=== PATIENT | male | born 1970 | race Caucasian/White ===

== ENCOUNTER 2025-01-04 19:00 | Observation (INO) | payer MEDICARE, MEDICAID, SELFPAY ==
[2025-01-04] VITALS (27 sets, daily range): BP systolic 96–160; BP diastolic 56–109; PULSE 87–140; TEMP 36.8; O2SAT 93–99; BMI 32.7; BMI 32.0
--- NOTE | 2025-01-04 17:43 | ECG_ITS ---
The [facility] Test Date: 2025-01-04 Pat Name: Evan Ricketts Department: Room: - Gender: Male Telephone Order Clerk: : 1970 Requested By: [id number] Order Number: [id number] Reading MD: ALEX HERNANDEZ M.D. Measurements Intervals [place] Rate: 136 P: 224 RI: 170 QRS: 74 QRSD: 90 T: 64 QT: 318 QTc: 398 Interpretive Statements SINUS TACHYCARDIA [address] depression [address] & Twave abnormality 6230 Left atrial enlargement 0102 ARTIFACT PRESENT 9150 abnormal ECG No previous ECG available for comparison Electronically Signed On 01-04-2025 19:37:14 EST by ALEX HERNANDEZ M.D.
[2025-01-04] MEDS: EPINEPHRINE HCL PF 1 MG/ML AMPULE 0.3 MG SUBQ (17:58)
[2025-01-04] MEDS: IPRATROPIUM/ALBUTEROL SULFATE 3 ML AMPUL.NEB 6 ML IH (18:15)
[2025-01-04] MEDS: METHYLPREDNISOLONE SOD SUCC PF 40 MG/ML VIAL IVP (18:15)
[2025-01-04] MEDS: FAMOTIDINE/PF 20 MG/2 ML VIAL IV (18:15)
[2025-01-04] MEDS: DIPHENHYDRAMINE HCL 50 MG/ML VIAL 25 MG IVP ×2 (18:15→23:43)
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
[2025-01-04] MEDS: 0.9 % SODIUM CHLORIDE 1,000 ML 1000 ML IV (18:25)
[2025-01-04 18:33] LABS: Hematocrit 43.7 % (42.0-54.0); Hemoglobin 13.3 g/dL (14.0-18.0); Immature Granulocytes Abs Auto 0.07 10^3/uL (0.00-0.03); Immature Granulocytes Pct Auto 0.4 % (0.0-0.5); Lymphocytes Absolute Auto 2.4 10^3/uL (1.2-3.8); Mean Corpuscular HGB Conc 30.4 g/dL (29.9-35.2); Mean Corpuscular Hemoglobin 25.0 pg (25.9-34.0); Mean Corpuscular Volume 82.1 fL (80.0-94.0); Platelet Count 424 10^3/uL (150-450); Red Blood Count 5.32 10^6/uL (4.70-6.10); White Blood Count 19.2 10^3/uL (4.0-11.0)
--- NOTE | 2025-01-04 18:33 | XR_ITS ---
The [address] [address] Patient Name: MUNIR FULLER MRN: [id number] date: 1970 Sex: M Assigned Patient Location: ED.MAIN Current Patient Location: ED.MAIN Accession/Order Number: [id number] Exam Date: 01/04/2025 18:25 Report Date: 01/04/2025 18:50 At the request of: BRYAN HENRY DO Procedure: XR chest 1V PA CHEST: CLINICAL HISTORY: SOB COMPARISON: None Right-sided Heybdp-x-Icik. Upper limits of normal cardiomediastinal silhouette. No focal opacity effusion or pneumothorax. IMPRESSION: Negative acute pleural-parenchymal disease Impression dictated by: Trenton Sawyer M.D. 01/04/2025 6:50 PM Dictation Location: [place] [address] Electronically authenticated by: [id number] Y Date: 01/04/2025 18:50
[2025-01-04 18:57] LABS: Anion Gap 16.4; Blood Urea Nitrogen 22.0 mg/dL (7.0-18.0); Calcium 8.9 mg/dL (8.5-10.1); Carbon Dioxide 28.4 mmol/L (21.0-32.0); Chloride 99 mmol/L (98-107); Estimated GFR (African America >60 (>=60 mL/min/1.73m^2); Estimated GFR (Non-African Ame >60 (>=60 mL/min/1.73m^2); Glucose 168 mg/dL (74-106); NT Pro B Type Natriuretic Pept 75.0 pg/mL (<=900.0); Potassium 3.8 mmol/L (3.5-5.1); Sodium 140 mmol/L (136-145)
--- NOTE | 2025-01-04 20:12 | ECG_ITS ---
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 Measurements Intervals [place] Rate: 121 P: 56 MD: 162 QRS: 71 QRSD: 92 T: 66 QT: 328 QTc: 400 Interpretive Statements 1120 Sinus tachycardia 9140 abnormal rhythm ECG Compared to ECG 01/04/2025 18:03:28 ST (T wave) deviation no longer present Atrial abnormality no longer present Electronically Signed On 01-05-2025 5:36:56 EST by ALEX HERNANDEZ M.D.
--- OUTSIDE RECORDS SUMMARY | 2025-01-04 21:20 | XMS_ITS | Clinical Summary ---
Author Organization [facility] Address [address] [place] [address] Care Team Providers Care Soa Integration Architect Name Role Phone Colleen Moncada MD Primary Care Provider [phone] Allergies Active AllergyReactionsCriticalityNoted AlwnKgdqgbkmJlrojecdrXcaqn02/18/2024 Medications MedicationSigDispense QuantityRefillsLast FilledStart DateEnd DateStatus acetaminophen (Tylenol) 325 mg tablet Indications:pain,mild pain 1-3Take 650 mg by mouth every 4 (four) hours if needed.01/08/2019Active Lactobac. rhamnosus GG-inulin 10 billion cell -200 mg capsule, sprinkle Take 1 capsule by mouth in the morning.Active albuterol 2.5 mg /3 mL (0.083 %) nebulizer solution every 6 (six) hours if needed.01/08/2019Active bisacodyl (Dulcolax) 10 mg suppository Insert 10 mg into the rectum if needed each day.02/02/2010ctive cholecalciferol (Vitamin D-3) 50 MCG (2000 UT) tablet Take 2,000 Units by mouth in the morning.Active clobetasol (Temovate) 0.05 % external solution Apply 1 Application topically twice a day. Apply to scalp topically as needed for itching.Active cyclobenzaprine (Flexeril) 10 mg tablet Take 10 mg by mouth if needed in the morning, at noon, and at bedtime.Active apixaban (Eliquis) 5 mg tablet Indications:may restart 02/13/24.Take 5 mg by mouth twice a day.Active dooxtjgngftwf-YF-qmougarrvawfc 2-10-325 mg tablet Indications:nasal congestionTake 1 tablet by mouth every 4 (four) hours if needed.Active furosemide (Lasix) 40 mg tablet Indications:ONCE PER DAY PER MED REC.Take 40 mg by mouth twice a day.01/08/2019 Active glycerin (Adult) suppository Indications:as needed for constipation.Insert 1 suppository into the rectum. Active hydrocortisone butyrate (Locoid) 0.1 % cream cream Apply 1 Application topically if needed in the morning and at bedtime.Active lactulose (Kristalose) 20 gram packet Indications:as needed for constipation.Take 20 g by mouth in the morning.Active lidocaine (Lidoderm) 5 % patch Indications:as needed for neck pain, remove twelve hours after application.Apply 1 patch topically in the morning.Active metFORMIN (Glucophage) 500 mg tablet Take 500 mg by mouth two times daily.Active magnesium hydroxide (Milk of Magnesia) 400 mg/5 mL suspension Take 30 mL by mouth.02/02/2010ctive montelukast (Singulair) 10 mg tablet Take 10 mg by mouth in the morning.Active multivitamin (Theragran-M) 9 mg iron-400 mcg tablet Take 1 tablet by mouth in the morning.Active rOPINIRole (Requip) 0.25 mg tablet Take 0.25 mg by mouth 3 times a day.01/08/2019Active sennosides (Senokot) 8.6 mg tablet Take 8.6 mg by mouth at bedtime.Active methenamine hippurate (Hiprex) 1 gram tablet Indications:prevention of bacterial urinary tract infection,twice per dayTake 1 g by mouth.Active sodium phosphate,mono-dibasic (ENEMA DISPOSABLE RECT) Insert 1 Application into the rectum if needed.Active calcium polycarbophil (Fibercon) 625 mg tablet 625 mg two times daily.Active mineral oil enema Insert 1 enema into the rectum 1 (one) time. PRN if no BM for 5 days after using glycerin rectal suppository.Active alum-mag hydroxide-simeth (Mylanta) 200-200-20 mg/5 mL oral suspension Take 5 mL by mouth every 4 (four) hours if needed for indigestion or heartburn. Active midodrine (Proamatine) 10 mg tablet Take 10 mg by mouth every 12 (twelve) hours. Give if SBP <90, hold if SBP >90. Active polyethylene glycol (Glycolax) oral powder Take 17 g by mouth in the morning.Active baclofen (Lioresal) 20 mg tablet Indications:Muscle spasmTake 0.5 tablets (10 mg) by mouth two times daily. 02/12/2024ctive gabapentin (Neurontin) 400 mg capsule Indications:Quadriplegia, unspecified (CMS/HCC)Take 1 capsule (400 mg) by mouth two times daily for 3 days. And then continue per facility provider. 6 capsule 02/12/2024ctive tiZANidine (Zanaflex) 4 mg tablet Indications:Muscle spasmTake 1 tablet (4 mg) by mouth every 8 (eight) hours if needed for muscle spasms.02/12/2024ctive oxyCODONE-acetaminophen (Percocet) 5-325 mg tablet Take 2 tablets by mouth.Active aspirin 81 mg EC tablet Take 81 mg by mouth in the morning.Active fexofenadine (Coretta) 180 mg tablet Take 180 mg by mouth in the morning.Active Active Problems ProblemNoted DateDiagnosed DateSpinal cord injury, C1-C7, subsequent encounter 02/11/20241362Zdmxbxiggm67/25/2024bnormal wwytyhn10nemia ontracture of muscle, multiple sites Difficulty in walking, not elsewhere azesdgfuhj27Encounter for other specified njpenwxhc71Major depressive disorder, single episode, wsbjyvnvtpa57Methicillin resis staph infct causing diseases classd gbdprm53Muscle spasmMuscle weakness (generalized)Neuromuscular dysfunction of bladder, nzydolkxpwv29OAB (overactive bladder)oor intravenous rodyzq66ressure injury of right heel, stage 3 ressure ulcer of other site, stage Noxltmkn61Quadriplegia, C1-C4 eubfwczrtb63 Quadriplegia, rlpusrtcrhd04estless leg yujsrbng05/01/2024 11/25/2023Spastic hemiplegia affecting left nondominant side Spastic hemiplegia, dominant sideStiffness of right hand, not elsewhere nxgtkixjdg84Gross vzvhvgilb54 Overview (11/25/2023): Added automatically from request for surgery [id number] Kidney stone Overview (11/25/2023): 09/22/20: 14 mm stone in the right renal pelvis without hydronephrosis noted on CT 09/14/2020. He would like to pursue treatment and after discussion would like to proceed with cystoscopy/right ureteroscopy/holmium laser/stent. 10/31/20: Right ureteroscopy with laser lithotripsy, stent on string 11/29/20: Return of gross hematuria and bladder pain. Will check a urine culture and renal ultrasound. If negative and symptoms resolve, we will see him back in 6 months with a KUB. 12/06/20: KUB 11/29 negative. Renal US 12/01/2020 negative for stones or hydronephrosis. Urine culture was positive. 01/22/23: Recent gross hematuria but no pain. Will check CT 02/04/2023: CT with bilateral staghorn calculus. Recommendation was for bilateral percutaneous nephrolithotomy. Procedure as outlined in the consent reviewed. 03/06/2023: Bilateral PCNL 03/19/23. Doing well. Stone was 40% Calcium phosphate (apatite). 40% Ammonium urate. 20% Magnesium ammonium phosphate (struvite) 03/20/23: Reviewed with Dr. Cruz. He appears to have residual stone in the kidneys and bladder. Will need to schedule cystolitholapaxy/ureteroscopy Last Assessment & Plan: Will discuss further management with Dr. Cruz Neurogenic mlgzepl62Neurogenic bowel Unspecified site of spinal cord injury without evidence of spinal bone injury Urinary tract infection, site not pibndwwlw99/10/2010 11/25/2023 Encounters DateTypeDepartmentCare SewaIfguomshdrm36/13/2025 1:30 PM EDTOffice Visit [facility] [address] [place] [address] Daphne Friend CNP Quadriplegia, C1-C4 incomplete (CMS/HCC) [G82.52] (Primary Dx); Csvzlbypkt75/11/2025Orders Only [facility] [address] [place] [address] Agata Champagne MA Spasticity (Primary Dx)from Last 3 Months Family History Medical HistoryRelationNameCommentsLiver cancerFatherLung diseaseMaternal GrandmotherLung cancerMotherRelationNameStatusCommentsFatherMaternal Grandmother Mother Social History Tobacco UseTypesPacks/DayYears UsedDateSmoking Tobacco: FormerCigarettes0.510 Smokeless Tobacco: Never Tobacco Cessation:Counseling Given: Not Answered Alcohol UseStandard Drinks/WeekCommentsYes0 (1 standard drink = 0.6 oz pure alcohol)[facility] UtilitiesAnswerDate RecordedIn the past 12 months has the [employer], gas, oil, or water Stand Offer threatened to shut off services in your home?No02/11/2024Humiliation, Afraid, Rape, and Kick questionnaireAnswerDate RecordedWithin the last year, have you been afraid of your partner or ex-partner?No03/23/2024Emotionally AbusedNot on file03/23/2024Physically Abused Not on file03/23/2024Sexually AbusedNot on file03/23/2024Overall Financial Resource Strain (CARDIA)AnswerDate RecordedHow hard is it for you to pay for the very basics like food, housing, medical care, and heating?Very hard02/11/2024 PHQ-2AnswerDate RecordedPatient Health Questionnaire-2 Rostq415 TransportationAnswerDate RecordedIn the past 12 months, has lack of transportation kept you from medical appointments or from getting medications?No 02/11/2024Lack of Transportation (Non-Medical)Not on file02/11/2024Housing Stability Vital SignAnswerDate RecordedIn the last 12 months, was there a time when you were not able to pay the mortgage or rent on time?No02/11/2024Number of Times Moved in the Last YearNot on file02/11/2024t any time in the past 12 months, were you homeless or living in a senior living (including now)?No02/11/2024 Hunger Vital SignAnswerDate RecordedWithin the past 12 months, you worried that your food would run out before you got the money to buymore.Never true02/11/2024 Ran Out of Food in the Last YearNot on file02/11/2024Sex and Gender Information ValueDate RecordedSex Assigned at FcqcjBjzl85/13/2025 1:27 PM EDTLegal SexMale 10/09/2023 1:13 PM EDTGender NhcbhnehLluc45/13/2025 1:27 PM EDTSexual OrientationHeterosexual or Vmxmcoeh84/13/2025 1:27 PM EDT Last Filed Vital Signs Vital SignReadingTime TakenCommentsBlood Hiwqowos44/6412/06/2024 1:50 PM EDT Olnpl637912/06/2024 1:50 PM ZNKDppdkbakgyb00.8 ??C (98.3 ??F)07/07/2024 1:02 PM EDTRespiratory Vyrn315803/23/2024 8:49 AM ESTOxygen Jssprznaxi742%05/04/2024 1:17 PM EDTInhaled Oxygen Concentration--Pcmlug420 kg (254 lb)05/04/2024 1:17 PM EDT Wjqgow841.5 cm (6' 3 )05/04/2024 1:17 PM EDTBody Mass Index31.75005/04/2024 1:17 PM EDT Plan of Treatment DateTypeDepartmentCare Team (Latest Contact Info)Rdinlvvagxr37/04/2026 1:00 PM ESTOffice Visit [facility] [address] [place] [address] Daphne Friend, NET COORDINATOR [address] [place] [address] Health MaintenanceDue DateLast DoneCommentsCT Egxntobdcysx19/23/1970FIT-DNA 1970FIT1970FOBT1970Medicare Annual Wellness (AWV)1970 Tkaqjfutullkk35/23/1970Hepatitis B Vaccines (1 of 3 - 19+ 3-dose series) 1988Pneumococcal Vaccine: Pediatrics (0 to 5 Years) and At-Risk Patients (6 to 64 Years) (1 of 2 - PCV)1988Adult Wyitmak1306/17/1991Zoster Vaccines (1 of 2)06/17/2019COVID-19 Vaccine ( season), 05/01/2020, 04/05/2020, Additional history existsInfluenza Vaccine (#1) 10/25/2024Depression Jzdpavqrj67/28/086370/6443Bazibfgifjq19/09/2030 05/03/2019Colorectal Cancer Amhxojext29/09/2030HIB VaccinesAged OutNo longer eligible based on patient's age to complete this topicHPV VaccinesAged OutNo longer eligible based on patient's age to complete this topicIPV VaccinesAged OutNo longer eligible based on patient's age to complete this topicMeningococcal B VaccineAged OutNo longer eligible based on patient's age to complete this topicMeningococcal VaccineAged OutNo longer eligible based on patient's age to complete this topicRotavirus VaccinesAged OutNo longer eligible based on patient's age to complete this topic Medical Devices ImplantedTypeAreaManufacturerDevice IdentifierShelf Expiration DateModel / Serial / LotCatheter,Synchromed Ii - [id number] Implanted:Qty: 1 on 02/11/2024 [facility]terN/A: BackMEDTRONIC [id number] / / [id number] Catheter Implanted:Qty: 1 on 02/11/2024 by Mauro Mai [facility]CatheterN/A: DdemDzmcvynae26/[id number] / / [id number] Kit Implanted:Qty: 1 on 02/11/2024 by [facility]uro Mai MD [facility] HospitalDeviceN/A: CrbrHqusrquvh41/[id number] / / [id number] 3 Pump Implanted:Qty: 1 on 02/11/2024 by [facility]uro Mai [facility] HospitalDeviceRight: IzouuqnMgbucvdtr59/[id number] / [id number] / Ivc Filter Implanted:Qty: 1IVC FilterChest Additional Health Concerns InfectionOnset DateLast IndicatedCRE Comment:Added from external infection. Source: [place]. 09/29/2018 Insurance Advance Directives * Full Code (Latest Code Status on File) Date ActivatedDate NgnaocmmcziSrfrnoex35/18/2024 2:56 PM02/12/2024 7:44 PM Care Teams Team MemberRelationshipSpecialtyStart DateEnd Date Colleen Moncada MD [address] [place] [phone] PCP - GeneralInternal Vsmauzcf59/18/24
--- OUTSIDE RECORDS SUMMARY | 2025-01-04 21:20 | XMS_ITS | Clinical Summary ---
Author Organization [facility] Healthcare Address [address] [place] [address] Care Team Providers Care Underwater Hunter Trapper Name Role Phone FlashTomasa DO Unavailable [phone] Francy Eisenberg NP Unavailable [phone] Colleen Moncada MD Unavailable Allergies Active AllergyReactionsCriticalityNoted DateCommentsWound Dressing Adhesive 11/17/2023 Medications MedicationSigDispense QuantityRefillsLast FilledStart DateEnd DateStatus rOPINIRole (Requip) 0.25 MG tablet Take 0.25 mg by mouth in the morning and 0.25 mg in the evening and 0.25 mg before bedtime.Active promethazine (Phenergan) 25 MG tablet Take 25 mg by mouthActive potassium chloride (Klor-Con) 20 MEQ packet Take 20 mEq by mouth in the morning and 20 mEq before bedtime.Active montelukast (Singulair) 10 MG tablet Take 10 mg by mouth DailyActive metFORMIN (Glucophage) 500 MG tablet Take 500 mg by mouth in the morning. Take with meals.Active Metaxalone (METAXALL PO) Take by mouthActive lactulose (Kristalose) 20 g packet Take 20 g by mouth DailyActive Menthol-Zinc Oxide (CALMOSEPTINE EX) Apply topicallyActive potassium chloride CR (Klor-Con) 8 MEQ ER tablet Take 8 mEq by mouth Daily Do not crush, chew, or split.Active zolpidem (Ambien) 5 MG tablet Take 5 mg by mouth as needed at bedtime for sleepActive sennosides (Senokot) 8.6 MG tablet Take 2 tablets by mouth DailyActive rivaroxaban (Xarelto) 20 MG tablet Take 20 mg by mouth Take with food.Active midodrine (Proamatine) 5 MG tablet Take 5 mg by mouth in the morning and 5 mg in the evening and 5 mg before bedtime.Active furosemide (Lasix) 40 MG tablet Take 40 mg by mouth in the morning and 40 mg before bedtime.Active diphenhydrAMINE (Banophen) 25 MG capsule Take 25 mg by mouth every 6 (six) hours if needed for itchingActive tiZANidine (Zanaflex) 4 MG capsule Take 4 mg by mouth in the morning and 4 mg in the evening and 4 mg before bedtime.Active lidocaine (Lidoderm) 5 % patch Apply 1 patch topically Daily Remove & discard patch within 12 hours or as directed by MD.Active gabapentin (Neurontin) 400 MG capsule Take 400 mg by mouth in the morning and 400 mg before bedtime.Active acetaminophen (Tylenol) 325 MG suppository Insert 325 mg into the rectum every 4 (four) hours if needed for mild pain or fever Notes: *please review for potential _update for e-prescription and drug interaction check*Active albuterol (2.5 MG/3ML) 0.083% nebulizer solution Take by nebulization every 6 (six) hours if needed for wheezingActive ergocalciferol (Vitamin D-2) 1.25 MG (98312 UT) capsule Take 1.25 mg by mouth 1 (one) time per weekActive apixaban (Eliquis) 5 MG tablet Take 5 mg by mouth in the morning and 5 mg in the evening.Active baclofen (Lioresal) 20 MG tablet Take 20 mg by mouth in the morning and 20 mg at noon and 20 mg in the evening and 20 mg before bedtime.Active bisacodyl (Dulcolax) 10 MG suppository Insert 10 mg into the rectum Daily as neededActive cholecalciferol (Vitamin D-3) 50 MCG (2000 UT) tablet Take 2,000 Units by mouth in the morning.Active clobetasol (Temovate) 0.05 % external solution Apply 1 Application topically in the morning and 1 Application in the evening. Active Ferrous Sulfate (IRON PO) Take 1 tablet by mouth in the morning.Active hydrocortisone butyrate (Locoid) 0.1 % cream cream Apply 1 Application topically 2 (two) times a day as neededActive Multiple Vitamins-Minerals (Multivitamin Adults) tablet Active ascorbic acid (Vitamin C) 250 MG chewable tablet 1 (one) time each day at the same timeActive Ciclopirox 1 % shampoo Apply 1 Application topically at bedtimeActive cyclobenzaprine (Flexeril) 10 MG tablet Take 10 mg by mouth 3 (three) times a day as neededActive magnesium hydroxide (Milk of Magnesia) 2400 MG/10ML suspension suspension Take 15 mL by mouth as needed at bedtimeActive methenamine hippurate (Hiprex) 1 g tablet Take 1 g by mouthActive pantoprazole (ProtoNix) 40 MG EC tablet 5Active sodium chloride 0.9 % flush flushingActive triamcinolone (Kenalog) 0.1 % cream Apply to chest and back Topically BID Friday through Friday for 30 day(s)Active Multiple Minerals-Vitamins (Multi Stephen Minerals) tablet as directed OrallyActive Polyethylene Glycol 3350 (MIRALAX PO) Take by mouthActive dextromethorphan-guaiFENesin (Mucinex DM) 30-600 MG 12 hr tablet Take 1 tablet by mouth every 12 (twelve) hours Do not crush, chew, or split. Active guaiFENesin (Humibid 3) 400 MG tablet Take 400 mg by mouth every 4 (four) hoursActive aluminum-magnesium hydroxide-simethicone (Maalox MAX) 400-400-40 MG/5ML suspension Take by mouth every 6 (six) hours if needed for indigestion or heartburnActive aspirin 81 MG EC tablet Take 81 mg by mouth DailyActive fexofenadine (Coretta) 180 MG tablet Take 180 mg by mouth DailyActive Misc Natural Products (FIBER 7 PO) Take by mouthActive Lactobacillus (Acidophilus) 0.5 MG tablet Take by mouthActive triamcinolone (Kenalog) 0.025 % cream Indications:Other seborrheic dermatitisApply to affected areas on the EARS and FACE, up to twice a day when flared, 30 day supply 30 g 5Active triamcinolone (Kenalog) 0.1 % cream Indications:Other seborrheic dermatitisApply to affected areas on the BODY bid when flared. Avoid the face, armpits, and groin, 30 day supply 80 g 5Active clobetasol (Temovate) 0.05 % external solution Indications:Other seborrheic dermatitisApply to scalp once a day, when flared, do not use one the face, groin, or underarms, 30 day supply 50 mL 5Active oxyCODONE-acetaminophen (Percocet) 5-325 MG tablet Indications:PainTake 2 tablets by mouth every 12 (twelve) hours if needed for severe pain 120 tablet 5Active oxyCODONE-acetaminophen (Percocet) 5-325 MG tablet Take 2 tablets by mouth12/21/2024Discontinued(Reorder) ketoconazole (NIZOral) 2 % shampoo Indications:Other seborrheic dermatitisApply topically 2 (two) times a week Lather on scalp 2x a week, leave on 5 min before rinsing 120 mL Expired Active Problems ProblemNoted DateDiagnosed DateSpastic hemiplegia affecting left nondominant sideQuadriplegia, C1-C4 incompleteSpastic hemiplegia, dominant sideMuscle spasm Restless leg syndrome Encounters DateTypeDepartmentCare BqgiNghxqrxmzet11/28/2025Telephone [facility] [address] [place] [address] Juana Blackwood NP 12/14/2024bstract [facility] [address] [place] [address] Unallocated, Stacie Ventura MD 11/12/2024 9:10 AM EDTOffice Visit [facility] [address] [place] [address] Destini Walter PA Other seborrheic dermatitis (Primary Dx)11/12/2024bstract [facility] [address] [place] [address] Destini Walter PA 11/12/2024Travelfrom Last 3 Months Social History Tobacco UseTypesPacks/DayYears UsedDateSmoking Tobacco: Every DayCigarettes Smokeless Tobacco: Never Tobacco Cessation:Ready to Q uit: Not Asked; Counseling Given: Not Answered Alcohol UseStandard Drinks/WeekCommentsNever0 (1 standard drink = 0.6 oz pure alcohol)Sex and Gender InformationValueDate RecordedSex Assigned at BirthNot on fileLegal ObhRfkw4405/08/2022 6:54 PM EDTGender IdentityNot on fileSexual OrientationNot on file Last Filed Vital Signs Vital SignReadingTime TakenCommentsBlood Oihrwbxz237/68003/03/2024 1:27 PM EST Mntqe6938/08/2025 1:27 PM ESTTemperature--Respiratory Rate--Oxygen Txcloovcnf70% 03/03/2024 1:27 PM ESTInhaled Oxygen Concentration--Weight--Uiizvh241.5 cm (6' 3 )10/26/2020 12:00 PM EDTBody Mass Index-- Plan of Treatment DateTypeDepartmentCare Team (Latest Contact Info)Pibaxqogmov83/19/2025 8:40 AM ESTOffice Visit [facility] [address] [place] [address] Destini Walter, PA [address] [place], [place] [id number] Health MaintenanceDue DateLast DoneCommentsCT Vxgzzgnuubnx78/23/1970FIT-DNA 1969FIT1969Medicare Annual Wellness (AWV)1969igmoidoscopy 1970Pneumococcal Vaccine: Pediatrics (0 to 5 Years) and At-Risk Patients (6 to 64 Years) (1 of 2 - PCV)1988FOBT, 10/10/2017, 10/09/2017, Additional history existsCOVID-19 Vaccine ( season) , 04/05/2020, 03/15/2020Influenza Vaccine (#1)2024 12/26/20191861Tuoiwdhdecf15Colorectal Cancer Hifwtxqgi17/09/2030 Procedures Procedure NamePriorityDate/TimeAssociated DiagnosisCommentsOCCULT BLOODRoutine 10/10/2017 from Last 3 Months or Most Recently Relevant to Health Maintenance Results * OCCULT BLOOD (10/10/2017)ComponentValueRef RangeTest MethodAnalysis Time Performed AtPathologist SignatureFECAL OCCULT BLOODNegativeNOMS LEGACY EXTERNAL LABComment:PERFORMED AT [address] [place], [place] [address]Pncasqsz (Source)Anatomical Location / Laterality Collection Method / VolumeCollection TimeReceived Time10/10/2017 Narrative Authorizing ProviderResult TypeResult StatusColleen Moncada MDECW LABSFinal Result Performing OrganizationAddressCity/State/ZIP CodePhone Number [facility] from Last 3 Months or Most Recently Relevant to Health Maintenance Insurance Care Teams Team MemberRelationshipSpecialtyStart DateEnd Colleen Moncada MD [address] [place] [address] PCP - ACO Reach04/02/24 Tomasa Vidales DO [address] [place] [address] Referring PhysicianNeurology1 Francy Eisenberg NP Nurse PractitionerNeurology1
--- OUTSIDE RECORDS SUMMARY | 2025-01-04 21:20 | XMS_ITS | Encounter Summary ---
Author Organization [facility] Address [address] [place] [address] Care Team Providers Care Metal Sander And Finisher Name Role Phone Tomasa Vidales Unavailable [phone] Francy Eisenberg NP Unavailable [phone] Colleen Moncada MD Unavailable Encounter Details DateTypeDepartmentCare Team (Latest Contact Info)Dbtrabvahnj17/28/2025Telephone [facility] [address] [place] [address] Juana Chavez NP [address] [place], [place] [id number] Social History Tobacco UseTypesPacks/DayYears UsedDateSmoking Tobacco: Every DayCigarettes Smokeless Tobacco: NeverAlcohol UseStandard Drinks/WeekCommentsNever0 (1 standard drink = 0.6 oz pure alcohol)Sex and Gender InformationValueDate RecordedSex Assigned at BirthNot on fileLegal KlqEhzu1705/08/2022 6:54 PM EDT Gender IdentityNot on fileSexual OrientationNot on filedocumented as of this encounter Miscellaneous Notes * Telephone Encounter - Juana Chavez NP - 12/21/2024 1:59 PM EDT Requested Prescriptions Signed Prescriptions Disp Refills oxyCODONE-acetaminophen (Percocet) 5-325 MG tablet 120 tablet 0 Sig: Take 2 tablets by mouth every 12 (twelve) hours if needed for severe pain Authorizing Provider: JUANA CHAVEZ documented in this encounter Plan of Treatment DateTypeDepartmentCare Team (Latest Contact Info)Xpthksnfadu76/19/2025 8:40 AM ESTOffice Visit [facility] [address] [place] [address] Destini Walter, PA [address] [place] [address] documented as of this encounter Visit Diagnoses Diagnosis Pain- Primary Generalized pain documented in this encounter Care Teams Team MemberRelationshipSpecialtyStart DateEnd Date Colleen Moncada MD [address] [facility] [address] [place] [address] PCP - ACO Reach2 Tomasa Vidales DO [address] [place] [address] Referring PhysicianNeurology1/10/18 Francy Eisenberg NP Nurse PractitionerNeurology1/10/18documented as of this encounter
[2025-01-04] MEDS: 0.9 % SODIUM CHLORIDE 1,000 ML 999 ML IV (21:59)
--- NOTE | 2025-01-04 22:15 | ECG_ITS ---
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 Measurements Intervals [place] Rate: 83 P: 58 CT: 160 QRS: 61 QRSD: 96 T: 54 QT: 365 QTc: 429 Interpretive Statements SINUS RHYTHM Normal ECG Compared to ECG 01/04/2025 20:12:46 Sinus tachycardia no longer present Electronically Signed On 01-05-2025 5:38:23 EST by ALEX HERNANDEZ M.D.
[2025-01-04 22:21] LABS: Glucose Urine UA NEGATIVE (NEGATIVE)
[2025-01-04 22:39] LABS: Cast Seen? NONE SEEN #/LPF (NONE SEEN); Crystals Seen? None Seen #/HPF (None Seen); Urine Culture Indicated YES-FRMC
[2025-01-04] MEDS: LEVOFLOXACIN 750 MG TABLET PO (23:40)
[2025-01-04] MEDS: ASPIRIN 81 MG TABLET.DR PO (23:40)
[2025-01-04] MEDS: MIDODRINE HCL 5 MG TABLET PO (23:41)
[2025-01-04] MEDS: METOPROLOL TARTRATE 25 MG TABLET PO (23:41)
[2025-01-04] MEDS: ROPINIROLE HCL 0.25 MG TABLET 0.5 MG PO (23:42)
[2025-01-04] MEDS: BACLOFEN 10 MG TABLET 5 MG PO (23:42)
[2025-01-04] MEDS: CLOPIDOGREL BISULFATE 75 MG TABLET PO (23:42)
[2025-01-04] MEDS: CHOLECALCIFEROL (VITAMIN D3) 25 MCG/1,000 UNITS TABLET 50 MCG PO (23:43)
[2025-01-05] VITALS (9 sets, daily range): BP systolic 127–137; BP diastolic 79–82; PULSE 56–99; TEMP 36.8; O2SAT 90–92
[2025-01-05] MEDS: 0.9 % SODIUM CHLORIDE 1,000 ML 125 ML IV ×2 (01:27→08:55)
[2025-01-05 06:03] LABS: Hematocrit 34.4 % (42.0-54.0); Hemoglobin 10.7 g/dL (14.0-18.0); Immature Granulocytes Abs Auto 0.07 10^3/uL (0.00-0.03); Immature Granulocytes Pct Auto 0.5 % (0.0-0.5); Lymphocytes Absolute Auto 0.8 10^3/uL (1.2-3.8); Mean Corpuscular HGB Conc 31.1 g/dL (29.9-35.2); Mean Corpuscular Hemoglobin 25.2 pg (25.9-34.0); Mean Corpuscular Volume 81.1 fL (80.0-94.0); Platelet Count 315 10^3/uL (150-450); Red Blood Count 4.24 10^6/uL (4.70-6.10); White Blood Count 14.6 10^3/uL (4.0-11.0)
[2025-01-05 06:21] LABS: Alanine Aminotransferase 16 U/L (16-63); Albumin Globulin Ratio 0.7; Albumin Level 2.8 g/dL (3.4-5.0); Alkaline Phosphatase 37 U/L (46-116); Anion Gap 10.3; Aspartate Amino Transferase 12 U/L (15-37); Blood Urea Nitrogen 15.0 mg/dL (7.0-18.0); Calcium 8.7 mg/dL (8.5-10.1); Carbon Dioxide 29.4 mmol/L (21.0-32.0); Chloride 104 mmol/L (98-107); Cholesterol 138 mg/dL (<=200); Estimated GFR (African America >60 (>=60 mL/min/1.73m^2); Estimated GFR (Non-African Ame >60 (>=60 mL/min/1.73m^2); Globulin 4.3 g/dL; Glucose 123 mg/dL (74-106); HDL Cholesterol 42 mg/dL (40-60); Magnesium 2.2 mg/dL (1.8-2.4); Potassium 4.7 mmol/L (3.5-5.1); Sodium 139 mmol/L (136-145); Total Protein 7.1 g/dL (6.4-8.2); Triglycerides 29 mg/dL (<=150); VLDL CHOLESTEROL 5.8 mg/dL
[2025-01-05] MEDS: BACLOFEN 10 MG TABLET 5 MG PO (06:53)
[2025-01-05] MEDS: ENOXAPARIN SODIUM 40 MG/0.4 ML SYRINGE SUBQ (08:11)
[2025-01-05] MEDS: MAGNESIUM OXIDE 400 MG TABLET PO (08:12)
[2025-01-05] MEDS: MONTELUKAST SODIUM 10 MG TABLET PO (08:12)
[2025-01-05] MEDS: ASPIRIN 81 MG TABLET.DR PO (08:12)
[2025-01-05] MEDS: PANTOPRAZOLE SODIUM 40 MG TABLET.DR PO (08:12)
[2025-01-05] MEDS: FERROUS SULFATE 325 MG TABLET PO (08:12)
[2025-01-05] MEDS: METFORMIN HCL 500 MG TABLET PO (08:12)
[2025-01-05] MEDS: METOPROLOL TARTRATE 25 MG TABLET PO (08:12)
[2025-01-05] MEDS: CHOLECALCIFEROL (VITAMIN D3) 25 MCG/1,000 UNITS TABLET 50 MCG PO (08:12)
--- NOTE | 2025-01-05 09:41 | SWNOTE1 ---
SW reached out to Ted at [facility] to confirm pt is from the facility manager terminal, waiting to hear back.
--- NOTE | 2025-01-05 09:44 | SWNOTE1 ---
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
--- NOTE | 2025-01-05 10:15 | CM.NOTE ---
Rounds made with Dr. Cox, discussed plan of care with pt. Pt requesting discharge today. [facility]. Will await discharge orders.
--- NOTE | 2025-01-05 11:00 | SWNOTE1 ---
Pt will be discharged back to [facility]. SW stopped in to speak with pt. Pt voiced things were going fine at [facility] and he wants transport set up as soon as possible. SW to work on transport.
--- NOTE | 2025-01-05 11:01 | SWNOTE1 ---
Medicare Outpatient Observation Notice reviewed and discussed with patient. Pt. verbalized understanding and SW signed the form due to pt being quadriplegic. Pt had no questions in regards to paper and did not want SW to call anyone else in family to review. Original given to patient and copy placed in patient?s chart.
--- NOTE | 2025-01-05 11:05 | SWNOTE1 ---
AV called and set up [facility] transport for 12:00. AV notified pt's nurse and [facility] of time. AV called pt's , but she did not answer and her mailbox was full. Pt is returning to [facility].
--- NOTE | 2025-01-05 11:06 | SWNOTE1 ---
SW completed [facility] paperwork and took packet out to the floor. AV faxed over completed dc med rec.
--- NOTE | 2025-01-05 11:06 | PC.NURSE ---
Report called to Orly at [facility]. transport expected at noon
--- NOTE | 2025-01-05 15:59 | PM.IMHP1 ---
Internal Medicine - H&P: HPI History of Present Illness Chief complaint: Anaphylactic shock, elevated troponin, decubitus Narrative: Mr Ricketts Is a 54-year-old man who was admitted to the hospital the evening of January 04 after he was brought to the hospital with symptoms of anaphylaxis. 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 He had a diffuse skin rash in his thighs, stomach pain and short of breath for almost an hour. He was diagnosed with anaphylaxis and given IV Solu-Medrol, famotidine, IV Benadryl, and IM epinephrine to treat his anaphylaxis. On routine lab workup his troponins were checked and noted to be elevated at 187 and repeat levels returned at 457. He was declining any further cardiac workup or procedure, he did not want transferred for this. He was admitted for observation overnight. Upon evaluating the patient this morning, he is awake and alert, he is oriented to person place and time, he understands his condition yesterday was consistent with a severe allergic reaction and he was updated on his heart enzymes that were checked. He tells me he feels great, he was requesting to be discharged home back to [facility] upon me arriving to the hospital. He has no complaints whatsoever for me other than requesting a pillow to be placed under his left arm for more support. He says he is breathing better, he denies any chest pain. The rash on his legs has improved greatly. Review of Systems ROS Status of ROS 10 or more systems reviewed and unremarkable except as noted in history and below [facility] Medical History (Updated 01/05/25 @ 01:43 by Estephanie Sy) Elevated troponin ?R79.89 - Other specified abnormal findings of blood chemistry (ICD-10) Calculus in bladder ?N21.0 - Calculus in bladder (ICD-10) Nicotine dependence ?F17.200 - Nicotine dependence, unspecified, uncomplicated (ICD-10) Congestive heart failure (CHF) ?I50.9 - Heart failure, unspecified (ICD-10) Hypotension ?I95.9 - Hypotension, unspecified (ICD-10) COPD (chronic obstructive pulmonary disease) ?J44.9 - Chronic obstructive pulmonary disease, unspecified (ICD-10) Pyoderma ?L08.0 - Pyoderma (ICD-10) Contracture of muscle ?M62.40 - Contracture of muscle, unspecified site (ICD-10) Anemia ?D64.9 - Anemia, unspecified (ICD-10) Major depressive disorder ?F32.9 - Major depressive disorder, single episode, unspecified (ICD-10) Neuromuscular dysfunction of bladder ?N31.9 - Neuromuscular dysfunction of bladder, unspecified (ICD-10) C1-C4 spin cord injury ?S14.101A - Unspecified injury at C1 level of cervical spinal cord, initial encounter (ICD-10) Acute complete flaccid quadriplegia Social History Little interest or pleasure in doing things: not at all Feeling down, depressed, or hopeless: not at all Meds Home Medications and Allergies Home Medications ?Medication ?Instructions ?Recorded ?Confirmed ?Type acetaminophen 500 mg capsule 500 mg PO Q4H PRN fever or pain 01/04/25 01/04/25 History albuterol sulfate 2.5 mg/0.5 mL 2.5 mg inhalation Q6H PRN 01/04/25 01/04/25 History solution for nebulization shortness of breath or wheezing aluminum-mag hydroxide-simethicone 5 ml PO Q6H PRN indigestion 01/04/25 01/04/25 History 200 mg-200 mg-20 mg/5 mL oral susp (Antacid Liquid) aspirin 81 mg tablet 81 mg PO DAILY 01/04/25 01/04/25 History baclofen 10 mg tablet 10 mg PO Q8H 01/04/25 01/05/25 History bisacodyl 10 mg rectal suppository 10 mg UT DAILY PRN constipation 01/04/25 01/04/25 History (Dulcolax (bisacodyl)) calcium carbonate (Antacid 600 mg PO DAILY 01/04/25 01/05/25 History (calcium carbonate)) cholecalciferol (vitamin D3) 50 2,000 unit PO .QHS 01/04/25 01/05/25 History mcg (2,000 unit) capsule clobetasol 0.05 % topical cream 1 applic topical DAILY PRN ECZEMA 01/04/25 01/05/25 History dextromethorphan-guaifenesin 30 1 tab PO Q12H PRN cough 01/04/25 01/04/25 History mg-600 mg tablet extended apvrqdb63 hr (Mucinex DM) ferrous sulfate 325 mg (65 mg 325 mg PO DAILY 01/04/25 01/04/25 History iron) tablet fexofenadine 180 mg tablet 180 mg PO DAILY 01/04/25 01/04/25 History furosemide 40 mg tablet 40 mg PO DAILY 01/04/25 01/04/25 History gabapentin 400 mg capsule 400 mg PO Q12H 01/04/25 01/04/25 History magnesium 200 mg tablet 400 mg PO .QHS 01/04/25 01/05/25 History magnesium hydroxide 2,400 mg/10 mL 15 ml PO DAILY PRN constipation 01/04/25 01/04/25 History oral suspension metformin 500 mg tablet 500 mg PO BIDWM 01/04/25 01/05/25 History methenamine hippurate 1 gram tablet 1 g PO Q12H 01/04/25 01/04/25 History montelukast 10 mg tablet 10 mg PO .QHS 01/04/25 01/05/25 History nutritional supp - diet aids 1 tab PO TID 01/04/25 01/04/25 History oxycodone-acetaminophen 5 mg-325 2 tab PO Q12H PRN pain 01/04/25 01/04/25 History mg tablet pantoprazole 40 mg tablet,delayed 40 mg PO DAILY 01/04/25 01/04/25 History release polyethylene glycol 3350 17 17 g PO DAILY PRN constipation 01/04/25 01/04/25 History gram/dose oral powder (ClearLax) potassium chloride 20 mEq 20 meq PO DAILY 01/04/25 01/05/25 History tablet,extended release(part/cryst) ropinirole 0.5 mg tablet 0.5 mg PO .QHS 01/04/25 01/04/25 History sennosides 8.6 mg tablet 8.6 mg PO TID 01/04/25 01/05/25 History (Black-Draught Lax-Senna) therapeutic multivitamin (Oncovite 1 tab PO DAILY 01/04/25 01/04/25 History tablet) triamcinolone acetonide 0.025 % 1 applic topical .q12hr PRN eczema 01/04/25 01/04/25 History topical cream cyclobenzaprine 10 mg tablet 10 mg PO Q8H PRN spasms 01/05/25 01/05/25 History midodrine 10 mg tablet 10 mg PO BIDWM PRN hypotension 01/05/25 01/05/25 History tizanidine 2 mg tablet 2 mg PO BID 01/05/25 01/05/25 History Allergies Allergy/AdvReac Type Severity Reaction Status Date / Time ceftriaxone Allergy Unknown Unknown Verified 01/04/25 17:48 [facility] Allergy Unknown Unknown Verified 01/04/25 17:48 lidocaine Allergy Unknown Unknown Verified 01/04/25 17:48 Exam Narrative Exam Narrative: General: Awake alert, no acute distress, breathing well on room air HEENT: head atraumatic, normocephalic, moist mucous membranes Neck: supple no masses, no lymphadenopathy CVS: regular rate and rhythm, no murmurs or gallops Respiratory: clear to auscultation bilaterally, no wheezing or crackles, symmetric expansion GI: soft, nondistended, nontender, positive bowel sounds with no organomegaly Extremity: No tenderness or edema on palpation, contractures noted. There is a slight rash on his inner thighs, no evidence of any raised lesions, these rashes are nontender to palpation, they are not itchy. He says they have greatly improved like before. Neuro: AOx3, CN II-VII intact. Skin: dry, intact no rashes or lesions Constitutional Vital Signs, click to edit/add: Last Vital Signs Temp 98.2 F 01/05/25 07:02 Pulse 62 01/05/25 09:58 Resp 18 01/05/25 07:02 BP 137/79 01/05/25 07:02 Pulse Ox 92 L 01/05/25 10:56 O2 Del Method Room Air 01/05/25 10:56 O2 Flow Rate 2 01/05/25 07:02 Internal Medicine - H&P: Reslt Labs Labs: Short CBC 01/04/25 01/05/25 Range/Units 18:11 05:33 WBC 19.2 H 14.6 H (4.0-11.0) 10^3/uL Hgb 13.3 L 10.7 L (14.0-18.0) g/dL Hct 43.7 34.4 L (42.0-54.0) % Plt Count 424 315 (150-450) 10^3/uL BMP 01/04/25 01/05/25 18:11 05:33 Sodium 140 139 Potassium 3.8 4.7 Chloride 99 104 Carbon Dioxide 28.4 29.4 BUN 22.0 H 15.0 Creatinine 0.90 0.51 L Glucose 168 H 123 H Calcium 8.9 8.7 Liver Function 01/05/25 Range/Units 05:33 Total Bilirubin 0.2 (0.2-1.0) mg/dL AST 12 L (15-37) U/L ALT 16 (16-63) U/L Alkaline Phosphatase 37 L (46-116) U/L Albumin 2.8 L (3.4-5.0) g/dL Urine 01/04/25 Range/Units 18:00 Urine Color Lt. yellow (YELLOW) Urine Clarity Sl cloudy (CLEAR) Urine pH 5.0 (5.0-9.0) Ur Specific [place] 1.020 (1.005-1.025) Urine Protein Trace (NEG/TRACE) mg/dL Urine Glucose (UA) Negative (NEGATIVE) mg/dL Urinary Catheter Management Urinary Catheter Management Suprapubic: Cath placed during this visit: no Assessment and Plan Assessment and Plan (1) Anaphylaxis: Assessment and Plan: ? Was diagnosed with anaphylaxis based on his skin rash, elevated troponin, shortness of breath with wheeze, and stomach pain ? Received IV sign Medrol, famotidine, Benadryl, and IV epinephrine immediately last night ? His symptoms have completely resolved this morning other than a slight rash on his legs ? He is not sure what he was given or exposed to yesterday, he did not receive any antibiotics or lidocaine to his knowledge ? Breathing well on room air ? Pulse is stable ? 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 Patient is requesting discharge in the hospital, he is a DNR CC and he is declining other further workup, echocardiogram was ordered and he refused this. He understands the risks of possible AK though the troponins were likely due to his anaphylactic reaction. He is requesting discharge back to [facility]. I did have a brief discussion with him about this and not having any further workup, he understands the risks. He has no interest in being in the hospital. Given his status is a DNR CC, I do not see any objections to discharge at this point in time given he is refusing further workup and okay with the risks and he is alert and oriented by 4, he is saturating well, he is talking in complete sentences, and he tells me he is feeling a lot better than he was yesterday.
--- NOTE | 2025-01-05 16:06 | PM.DS1 ---
DS: Providers Provider Date of admission: 01/04/25 22:46 Primary care physician: REYMUNDO GUTIERREZ DS: Diagnosis Discharge Diagnosis (1) Anaphylaxis: (2) C1-C4 spin cord injury: DS: Summary Hospital Course Hospital Course: Mr Ricketts Is a 54-year-old man who was admitted to the hospital the evening of January 04 after he was brought to the hospital with symptoms of anaphylaxis. 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 He had a diffuse skin rash in his thighs, stomach pain and short of breath for almost an hour. He was diagnosed with anaphylaxis and given IV Solu-Medrol, famotidine, IV Benadryl, and IM epinephrine to treat his anaphylaxis. On routine lab workup his troponins were checked and noted to be elevated at 187 and repeat levels returned at 457. He was declining any further cardiac workup or procedure, he did not want transferred for this. He was admitted for observation overnight. Upon evaluating the patient this morning, he is awake and alert, he is oriented to person place and time, he understands his condition yesterday was consistent with a severe allergic reaction and he was updated on his heart enzymes that were checked. He tells me he feels great, he was requesting to be discharged home back to [place] upon me arriving to the hospital. He has no complaints whatsoever for me other than requesting a pillow to be placed under his left arm for more support. He says he is breathing better, he denies any chest pain. The rash on his legs has improved greatly. My first time evaluating the patient was the morning of 01/05/25, I was not present for this admission. ? Patient is requesting discharge in the hospital, he is a DNR CC and he is declining other further workup, echocardiogram was ordered and he refused this. He understands the risks of possible PR though the troponins were likely due to his anaphylactic reaction. He is requesting discharge back to [facility]. I did have a brief discussion with him about this and not having any further workup, he understands the risks. He has no interest in being in the hospital. Given his status is a DNR CC, I do not see any objections to discharge at this point in time given he is refusing further workup and okay with the risks and he is alert and oriented by 4, he is saturating well, he is talking in complete sentences, and he tells me he is feeling a lot better than he was yesterday. [facility]. Time Spent with Patient Time attestation: Total time spent providing and/or coordinating discharge services: Exam Constitutional Vital Signs, click to edit/add: Last Vital Signs Temp 98.2 F 01/05/25 07:02 Pulse 62 01/05/25 09:58 Resp 18 01/05/25 07:02 BP 137/79 01/05/25 07:02 Pulse Ox 92 L 01/05/25 10:56 O2 Del Method Room Air 01/05/25 10:56 O2 Flow Rate 2 01/05/25 07:02 DS: Data Data Completed and Pending Labs on day of discharge: Labs from last 24 hours 01/05/25 01/04/25 01/04/25 05:33 21:04 18:11 WBC 14.6 H 19.2 H RBC 4.24 L 5.32 Hgb 10.7 L 13.3 L Hct 34.4 L 43.7 MCV 81.1 82.1 MCH 25.2 L 25.0 L MCHC 31.1 30.4 RDW 16.3 H 16.8 H Plt Count 315 424 MPV 10.3 10.5 Neut % (Auto) 90.3 H 83.3 H Lymph % (Auto) 5.5 L 12.7 L Turner % (Auto) 3.4 2.9 Eos % (Auto) 0.0 L 0.6 L Baso % (Auto) 0.3 0.1 L Neut # (Auto) 13.2 H 16.0 H Lymph # (Auto) 0.8 L 2.4 Turner # (Auto) 0.5 0.6 Eos # (Auto) 0.0 0.1 Baso # (Auto) 0.0 0.0 Abs Immat Gran (auto) 0.07 H 0.07 H Imm/Tot Granulo (auto) 0.5 0.4 Sodium 139 140 Potassium 4.7 3.8 Chloride 104 99 Carbon Dioxide 29.4 28.4 Anion Gap 10.3 16.4 BUN 15.0 22.0 H Creatinine 0.51 L 0.90 Est GFR ( Amer) >60 >60 Est GFR (Non-Af Amer) >60 >60 BUN/Creatinine Ratio 29.4 24.4 Glucose 123 H 168 H Calcium 8.7 8.9 Magnesium 2.2 Total Bilirubin 0.2 AST 12 L ALT 16 Alkaline Phosphatase 37 L Troponin I High Sens 230.6 H* 455.7 H* 189.7 H* NT-Pro-B Natriuret Pep 75.0 Total Protein 7.1 Albumin 2.8 L Globulin 4.3 Albumin/Globulin Ratio 0.7 Triglycerides 29 Cholesterol 138 LDL Cholesterol, Calc 90.2 VLDL Cholesterol 5.8 HDL Cholesterol 42 Cholesterol/HDL Ratio 3.3 Urine Color Urine Clarity Urine pH Ur Specific [place] Urine Protein Urine Glucose (UA) Urine Ketones Urine Occult Blood Urine Nitrite Urine Bilirubin Urine Urobilinogen Ur Leukocyte Esterase Urine RBC Urine WBC Ur Squamous Epith Cells Ur Transition Epith Cell Urine Crystals Urine Bacteria Urine Casts Urine Mucus Ur Culture Indicated? 01/04/25 18:00 WBC RBC Hgb Hct MCV MCH MCHC RDW Plt Count MPV Neut % (Auto) Lymph % (Auto) Turner % (Auto) Eos % (Auto) Baso % (Auto) Neut # (Auto) Lymph # (Auto) Turner # (Auto) Eos # (Auto) Baso # (Auto) Abs Immat Gran (auto) Imm/Tot Granulo (auto) Sodium Potassium Chloride Carbon Dioxide Anion Gap BUN Creatinine Est GFR ( Amer) Est GFR (Non-Af Amer) BUN/Creatinine Ratio Glucose Calcium Magnesium Total Bilirubin AST ALT Alkaline Phosphatase Troponin I High Sens NT-Pro-B Natriuret Pep Total Protein Albumin Globulin Albumin/Globulin Ratio Triglycerides Cholesterol LDL Cholesterol, Calc VLDL Cholesterol HDL Cholesterol Cholesterol/HDL Ratio Urine Color Lt. yellow Urine Clarity Sl cloudy Urine pH 5.0 Ur Specific [place] 1.020 Urine Protein Trace Urine Glucose (UA) Negative Urine Ketones Negative Urine Occult Blood Large A Urine Nitrite Positive A Urine Bilirubin Negative Urine Urobilinogen 0.2 Ur Leukocyte Esterase Large A Urine RBC 0-2 Urine WBC 10-20 A Ur Squamous Epith Cells Rare Ur Transition Epith Cell Rare A Urine Crystals None seen Urine Bacteria Moderate A Urine Casts None seen Urine Mucus None seen Ur Culture Indicated? Yes-[facility] [place] Preliminary micro results at discharge 01/04/25 18:00 Urine Culture - Preliminary Urine,Clean Catch Pending - Specimen sent to [facility] Discharge Plan Discharge Disposition: Xfer LT Discharge Medications: Continued nutritional supp - diet aids Tablet 1 tab PO TID gabapentin 400 mg capsule 400 mg PO Q12H furosemide 40 mg tablet 40 mg PO DAILY alum-mag hydroxide-simeth [Antacid Liquid] 200-200-20 mg/5 mL suspension 5 ml PO Q6H PRN (Reason: indigestion) magnesium hydroxide 2,400 mg/10 mL suspension 15 ml PO DAILY PRN (Reason: constipation) magnesium 200 mg tablet 400 mg PO .QHS metformin 500 mg tablet 500 mg PO BIDWM methenamine hippurate 1 gram tablet 1 g PO Q12H polyethylene glycol 3350 [ClearLax] 17 gram/dose powder 17 g PO DAILY PRN (Reason: constipation) Mucinex DM 30-600 mg tablet extended release 12 hr 1 tab PO Q12H PRN (Reason: cough) oxycodone-acetaminophen 5-325 mg tablet 2 tab PO Q12H PRN (Reason: pain) pantoprazole 40 mg tablet,delayed release (DR/EC) 40 mg PO DAILY ropinirole 0.5 mg tablet 0.5 mg PO .QHS sennosides [Black-Draught Lax-Senna] 8.6 mg tablet 8.6 mg PO TID Oncovite Tablet 1 tab PO DAILY triamcinolone acetonide 0.025 % cream 1 applic TOPICAL .q12hr PRN (Reason: eczema) potassium chloride 20 mEq tablet,ER particles/crystals 20 meq PO DAILY Rx Instructions: IN THE AFTERNOON montelukast 10 mg tablet 10 mg PO .QHS acetaminophen 500 mg capsule 500 mg PO Q4H PRN (Reason: fever or pain) clobetasol 0.05 % cream 1 applic topical DAILY PRN (Reason: ECZEMA) fexofenadine 180 mg tablet 180 mg PO DAILY baclofen 10 mg tablet 10 mg PO Q8H bisacodyl [Dulcolax (bisacodyl)] 10 mg suppository 10 mg [place] DAILY PRN (Reason: constipation) ferrous sulfate 325 mg (65 mg iron) tablet 325 mg PO DAILY calcium carbonate [Antacid (calcium carbonate)] 200 mg calcium (500 mg) tablet,chewable 600 mg PO DAILY aspirin 81 mg tablet 81 mg PO DAILY albuterol sulfate 2.5 mg/0.5 mL solution for nebulization 2.5 mg inhalation Q6H PRN (Reason: shortness of breath or wheezing) cholecalciferol (vitamin D3) 50 mcg (2,000 unit) capsule 2,000 unit PO .QHS cyclobenzaprine 10 mg tablet 10 mg PO Q8H PRN (Reason: spasms) midodrine 10 mg tablet 10 mg PO BIDWM PRN (Reason: hypotension) tizanidine 2 mg tablet 2 mg PO BID Print Language: Spanish [employer]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
[2025-01-06 02:03] LABS: A. calcoaceticus-baumannii Cpx NOT DETECTED (NOT DETECTE); Bacteroides fragilis NOT DETECTED (NOT DETECTE); Candida auris NOT DETECTED (NOT DETECTE); Candida glabrata NOT DETECTED (NOT DETECTE); Enterobacterales NOT DETECTED (NOT DETECTE); Enterococcus faecalis NOT DETECTED (NOT DETECTE); Enterococcus faecium NOT DETECTED (NOT DETECTE); Klebsiella aerogenes NOT DETECTED (NOT DETECTE); Klebsiella pneumoniae group NOT DETECTED (NOT DETECTE); Proteus spp. NOT DETECTED (NOT DETECTE); Salmonella spp. NOT DETECTED (NOT DETECTE); Serratia marcescens NOT DETECTED (NOT DETECTE); Source BLOOD; Staphylococcus epidermidis NOT DETECTED (NOT DETECTE); Staphylococcus lugdunensis NOT DETECTED (NOT DETECTE); Stenotrophomonas maltophilia NOT DETECTED (NOT DETECTE); Streptococcus pyogenes NOT DETECTED (NOT DETECTE); Streptococcus spp. NOT DETECTED (NOT DETECTE)
[2025-01-06 04:11] LABS: Staphylococcus spp. DETECTED (NOT DETECTE)
--- NOTE | 2025-01-06 09:21 | SWNOTE1 ---
AV faxed H&P and discharge summary to [facility].
--- NOTE | 2025-01-10 08:37 | CM.NOTE ---
LORENE called [facility] and spoke with Charmaine regarding positive blood and urine cultures on pt. Charmaine would like LORENE to fax results to her, Charmaine will make sure physician receives reports for treatment.
--- NOTE | 2025-01-10 08:40 | CM.NOTE ---
CM faxed urine and blood culture to [facility] at [place] [phone].
== END 2025-01-05 12:12 ==
LOC: ER 22:12 → MS 22:57
PROVIDERS: Student in an Organized Health Care Education/Training Program; Admitting Provider Internal Medicine; Emergency Provider Internal Medicine; PCP Family Medicine; Visit Provider Internal Medicine
DX: T78.2XXA Anaphylactic shock, unspecified, initial encounter (principal); G82.50 Quadriplegia, unspecified; L89.314 Pressure ulcer of right buttock, stage 4; Z66 Do not resuscitate; R79.89 Other specified abnormal findings of blood chemistry; J44.9 Chronic obstructive pulmonary disease, unspecified; I50.9 Heart failure, unspecified; R82.998 Other abnormal findings in urine
CPT/HCPCS: 36415; 71045; 80048; 80053; 80061; 81001; 83735; 83880; 84484; 85025; 87040; 87077; 87086; 87088; 87150; 87186; 93005; 94640; 94761; 96372; 96374; 96375; 96376; 99285; A6213; G0378; J1100; J1200; J1650; J2919; J3490